=== PATIENT | male | born 2000 ===

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

== ENCOUNTER 2018-01-02 07:22 | Emergency (ER) | payer OTHER ==
[~2018-01-02] VITALS: Ht 170.2 cm; Wt 80.7 kg
[~2018-01-02 07:22] MED LIST changes: +ALBU90OI INH; +Prednisone20 MG PO
[2018-01-02] MEDS ORDERED: ALBU90OI61 INH (07:36)
== END 2018-01-02 08:17 | disposition home or self-care (01) ==
LOC: ER 07:22
DX: R06.2 Wheezing (principal)
CPT/HCPCS: 94640; 99283